=== PATIENT | male | born 1990 | race Caucasian/White ===

== ENCOUNTER → 2016-07-07 | Outpatient (CLI) | payer OTHER ==
--- NOTE | 2016-07-07 10:18 | US ---
Complete Abdominal Sonography Clinical History: 25-year-old male with generalized abdominal pain and nausea. ICD-10 Diagnostic Codes: R11.0 and R10.9. Technique: A curvilinear 5 MHz transducer was used to sonographically evaluate the upper abdomen. Col or Doppler was also used. Comparison Study: None. Findings: The pancreatic contour is normal. The proximal and distal abdominal aorta are normal. The m id-abdominal aorta is obscured by bowel gas. The visualized IVC is normal in caliber. There is no asc ites or pleural effusion. The liver is normal, measuring 13.8 cm along the right midaxillary line. Th ere is no focal hepatic mass. There is no intrahepatic or extrahepatic bile duct dilatation. The comm on bile duct measures 3 mm. The hepatic vein trifurcation and the main portal vein are patent. The ga llbladder is moderately distended, with trace sludge present. There is no cholelithiasis, gallbladder polyp, or pericholecystic fluid. There is some minimal vascularity of the normal-appearing gallbladd er wall, with no sonographic Ayoub sign. The kidneys are normal in size, shape, and position, with t he right kidney measuring 10.7 x 4.0 x 4.7 cm, and the visualized portions of the left kidney are nor mal, measuring 11.3 x 3.9 x 5.2 cm. There is no hydronephrosis. The spleen is at the upper limits of normal, measuring 11.7 x 12.2 x 4.1 cm with a volume of 306 mL. Impression: Trace gallbladder sludge with no evidence of cholelithiasis, cholecystitis, or bile duct dilatation.
== END ==
LOC: BMCIMAGING 08:22
PROVIDERS: ATTEND Internal Medicine
DX: R10.84 Generalized abdominal pain (principal); R11.0 Nausea; R19.7 Diarrhea, unspecified